=== PATIENT | female | born 1940 | race Caucasian/White ===

== ENCOUNTER 2023-09-14 12:40 | Emergency (ER) | payer MEDICARE, SELFPAY ==
[2023-09-14 12:49] VITALS: BP 136/61; PULSE 73; RESP 18; TEMP 36.6; O2SAT 94
--- NOTE | 2023-09-14 13:08 | ED.GENADULT ---
HPI - General Adult General Chief complaint: Headache Stated complaint: right side head down neck to shoulder Source: patient, RN notes reviewed and old records reviewed Mode of arrival: ambulatory Limitations: no limitations History of Present Illness HPI narrative: 82-year-old female presents with complaint of pain to posterior right head this started 3 days ago. Patient taking pain medications without relief. Patient denies any other symptoms, patient denies injury or illness. MD complaint: Head pain Related Data Home Medications Medication Instructions Recorded Confirmed alendronate 70 mg tablet mg PO 09/14/23 aspirin 81 mg tablet,delayed 81 mg PO DAILY 09/14/23 09/14/23 release levothyroxine 137 mcg tablet mcg 09/14/23 losartan 50 mg tablet mg 09/14/23 metoprolol tartrate 25 mg tablet mg 09/14/23 pantoprazole 40 mg tablet,delayed mg PO 09/14/23 release pioglitazone 30 mg tablet mg 09/14/23 semaglutide 0.25 mg or 0.5 mg (2 mg subcut 09/14/23 mg/3 mL) subcutaneous pen injector ([employer]) Allergies Allergy/AdvReac Type Severity Reaction Status Date / Time No Known Allergies Allergy Verified 09/14/23 13:01 Review of Systems Constitutional: Constitutional: Reports no additional constitutional complaints, Denies body ache(s), Denies chills, Denies fatigue, Denies fever(s) and Reports headache(s) Eyes: Eyes: Reports no additional eye complaints and Denies blurry vision ENT: Reports system reviewed and no additional complaints, except as documented, Denies vertigo, Denies dizziness, Denies ear discharge, Denies otalgia, Denies facial pain, Denies headache(s), Denies nasal congestion, Denies nasal discharge, Denies sinus pain, Denies sinus pressure and Denies sore throat Cardiovascular: Cardiovascular: Reports no additional cardiovascular complaints, Denies chest pain, Denies chest pain at rest, Denies rapid heart rate and Denies dyspnea Respiratory: Respiratory: Reports no additional respiratory complaints, Denies chest congestion, Denies cough, Denies pain on inspiration, Denies pain with cough and Denies dyspnea Gastrointestinal: Gastrointestinal: Denies abdominal pain, Denies diarrhea, Denies nausea and Denies vomiting Integumentary/Breasts: Skin/Breast: Denies rash Neurologic: Reports as per HPI, Denies vertigo, Denies dizziness and Reports headache(s) Endocrine: Endocrine: Denies fatigue PMFSH Comments At the time of my signature, I reviewed and agree with the nursing past medical, surgical, social, and family history. There is no relevant family history pertinent to the patient complaint. Exam Const: General: cooperative, healthy appearing, no acute distress and well nourished Nutritional Appearance: well nourished Orientation/consciousness: patient oriented x3 Limitations: no limitations HENMT: Head: normal to inspection and normocephalic Ears: external ears normal, TM's normal bilaterally, mastoids normal and Abnormal EAC present Face/Nose/Sinus: normal facial exam Face and sinus: normal facial exam Mouth: Yes Normal oral and palatal mucosa present, Yes oropharynx normal and Yes moist mucous membranes Throat: tonsils normal, uvula midline and no uvular edema Eyes: General: appearance normal, both eyes and all related structures Sclera: sclerae normal Pupils: Equal, round and reactive pupils present Resp: Effort & Inspection: normal respiratory effort, able to speak in complete sentences, no audible wheezes, no cough, no respiratory distress and no retractions Cardio: Rate: regular rate Skin: General skin exam: normal color and no rashes or lesions noted Neuro: General: patient oriented x3, gait normal, moves all extremities, no meningeal signs, CN's II-XI intact bilaterally and normal sensation to monofilament Cranial nerves: Yes CN's II-XII intact bilaterally and Yes Equal, round and reactive pupils present Cognition (Neuro): normal cognition Speech: normal speech Gait e
== END 2023-09-14 13:11 | disposition short-term general hospital (02) ==
PROVIDERS: Emergency Provider Registered Nurse; PCP Internal Medicine
DX: R51.9 Headache, unspecified (principal); E78.00 Pure hypercholesterolemia, unspecified; I10 Essential (primary) hypertension; E11.9 Type 2 diabetes mellitus without complications
CPT/HCPCS: 99213; G0463

== ENCOUNTER 2024-09-03 11:31 | Emergency (ER) | payer MEDICARE, SELFPAY ==
--- NOTE | ~2024-09-03 | XR_ITS ---
EXAMINATION: XR chest 2V DATE: 09/03/2024 12:39 INDICATION: Cough and wheezing TECHNIQUE: PA and lateral views of the chest were obtained. COMPARISON: None FINDINGS: Subtle bibasilar opacities which could represent atelectasis or pneumonia. No pleural effusion or pne umothorax. Heart size is normal. Moderate sized hiatal hernia. Mild thoracic spondylosis. IMPRESSION: 1. Subtle bibasilar opacities which could represent atelectasis or pneumonia. 2. Moderate-sized hiatal hernia. Reviewed, dictated and finalized at location A.
[2024-09-03 11:36] VITALS: BP 153/70; PULSE 98; RESP 20; TEMP 37.1; O2SAT 96
--- NOTE | 2024-09-03 12:19 | ED.URI ---
HPI - URI/Sore Throat General Chief Complaint: Upper Respiratory Infection Stated Complaint: Cough/Sore Throat Time Seen by Provider: 09/03/24 12:20 Source: patient Mode of arrival: ambulatory Limitations: no limitations History of Present Illness HPI Narrative: 83-year-old female presented for complaint of cough, chest congestion and nasal congestion for 1 week. Denies shortness of breath, wheezing, nausea, vomiting, diarrhea or lethargy. She has been taking DayQuil NyQuil , Vicks rub and trying to rest. Related Data Home Medications ?Medication ?Instructions ?Recorded ?Confirmed ?Last Taken ?Type alendronate 70 mg tablet mg PO 09/14/23 Unknown History levothyroxine 137 mcg tablet mcg 09/14/23 Unknown History losartan 50 mg tablet mg 09/14/23 Unknown History metoprolol tartrate 25 mg tablet mg 09/14/23 Unknown History pantoprazole 40 mg tablet,delayed mg PO 09/14/23 Unknown History release pioglitazone 30 mg tablet 30 mg 09/14/23 Unknown History semaglutide 0.25 mg or 0.5 mg (2 mg subcut 09/14/23 Unknown History mg/3 mL) subcutaneous pen injector (Ozempic) aspirin 325 mg capsule 325 mg PO BID 09/03/24 09/03/24 Unknown History atorvastatin 80 mg tablet mg 09/03/24 Unknown History Allergies Allergy/AdvReac Type Severity Reaction Status Date / Time No Known Allergies Allergy Verified 09/14/23 13:01 Review of Systems Review of Systems: CONSTITUTIONAL: Denies body aches, fever, chills, or sweats. EYES: Denies visual changes, redness, or discharge. ENT: reports rhinorrhea, congestion, denies sore throat, or otalgia. CARDIOVASCULAR: Denies chest pain, palpitations, or edema. RESPIRATORY: Reports cough, denies sob, wheezing. GASTROINTESTINAL: Denies abdominal pain, nausea, vomiting, or diarrhea. MUSCULOSKELETAL: Denies back pain, joint pain, or myalgia. NEUROLOGIC: Denies headache All systems reviewed & are unremarkable except as noted in HPI and below PMFSH Past Medical History Medical History (Updated 09/03/24 @ 13:10 by Lexie Quintanilla APRN) Diabetes Comments At time of signature, I have reviewed and agree with nursing past medical, surgical, social and family history unless otherwise noted. Please see nursing chart for further information. There is no relevant family history pertinent to the presenting complaint Exam Narrative: GENERAL: Well-appearing, in no acute distress. EYES: EOMI. No redness or drainage. Conjunctivae normal. ENT: Mucous membranes pink and moist. rhinorrhea. TMs normal bilaterally. Throat normal. Uvula midline. NECK: Normal AROM. Supple. CHEST: No respiratory distress. Wheezing to bases and right upper lobe HEART: Regular rate and rhythm. No murmur appreciated. ABDOMEN: Soft, nontender, nondistended, normal active bowel sounds. SKIN: Warm, dry, no rash. Capillary refill normal. Normal skin turgor. NEURO: Alert and oriented x3. Gait steady. PSYCH: Normal affect. Course Course Emergency Course: Patient is aware of diagnosis, understands and agrees to treatment plan. Anticipatory guidance given. Patient agrees to follow-up as directed and is aware of reasons to seek care at the emergency department. Portions of this record may have been created with voice recognition software Level of Care: Express Care Visit Vital Signs Vital signs: Vital Signs Temperature 98.8 F 09/03/24 11:36 Pulse Rate 98 09/03/24 11:36 Respiratory Rate 20 09/03/24 11:36 Blood Pressure 153/70 H 09/03/24 11:36 Pulse Oximetry 96 09/03/24 11:36 Oxygen Delivery Room Air 09/03/24 11:36 Temperature 98.8 F 09/03/24 11:36 Pulse Rate 98 09/03/24 11:36 Respiratory Rate 20 09/03/24 11:36 Blood Pressure 153/70 H 09/03/24 11:36 Pulse Oximetry 96 09/03/24 11:36 Oxygen Delivery Room Air 09/03/24 11:36 MDM - URI/Sore Throat MDM Narrative Medical decision making narrative: Discussed physical exam findings and CXR. Advised supportive measures and signs/symptoms to go to the ER. Pt is appropriate for outpt treatment and f/u. Differential Diagnosis Differential diagnosis: Likely upper respiratory infection, sinusitis, viral infection, bronchitis and other (pneumonia) Imaging Data Radiologist's impression: Patient: Amanda Moncada : 1940 MR#: [id number] Age: 83 Acct:[id number] Loc: [facility] ADM Date: 09/03/24Attending Dr: Ordering Physician: Lexie Quintanilla APRN Date of Service: 09/03/24 Procedure(s): XR chest 2V Accession Number(s): [id number] cc: Chilo, John Santiago MD; Lexie Quintanilla APRN~ EXAMINATION: XR chest 2V DATE: 09/03/2024 12:39 INDICATION: Cough and wheezing TECHNIQUE: PA and lateral views of the chest were obtained. COMPARISON: None FINDINGS: Subtle bibasilar opacities which could represent atelectasis or pneumonia. No pleural effusion or pneumothorax. Heart size is normal. Moderate sized hiatal hernia. Mild thoracic spondylosis. IMPRESSION: 1. Subtle bibasilar opacities which could represent atelectasis or pneumonia. 2. Moderate-sized hiatal hernia. Discharge Plan Discharge Clinical Impression: Pneumonia Patient Disposition: Home, Self-Care Condition: Stable Instructions: Antibiotic Form, Pneumonia (ED) Additional Instructions: Pneumonia is a lung infection that can cause a fever, cough, and trouble breathing. How it spreads: When someone with bacterial pneumonia coughs, sneezes, or talks, they release respiratory droplets into the air that can be inhaled by others.?You can also get pneumonia by touching a contaminated surface or object and then touching your mouth or nose. You're generally contagious for around 48 hours after starting antibiotics and your fever goes away.? To prevent the spread of pneumonia, you can:? ? Get vaccinated? ? Wash your hands often with soap and water for 20 seconds? ? Cover your mouth with a tissue when you cough or sneeze? ? Avoid people who are already sick with pneumonia? ? Stay home when you have pneumonia Take antibiotics as directed until complete. eat small frequent meals. Get lots of rest and drink fluids. Alternate Tylenol and ibuprofen for pain/fever [id number] cough medication can cause drowsiness, take according to package directions If you have nasal congestion, you can take Zyrtec, Claritin along with Flonase spray Call your Primary Care Doctor and make a follow-up appointment in 3 days. Go to the ER for worsening symptoms or concerns Patient Language: Singaporean Prescriptions: New prednisone 20 mg tablet 40 mg PO DAILY 5 Days Qty: 10 0RF azithromycin [Zithromax Z-Gucci] 250 mg tablet See Rx Instructions .ROUTE .COMPLEX Qty: 6 0RF Rx Instructions: For 250 mg dose pack: take 500 mg today (day 1), then 250 mg for 4 days (days 2-5) No Action atorvastatin 80 mg tablet aspirin 325 mg capsule 325 mg PO BID losartan 50 mg tablet levothyroxine 137 mcg tablet alendronate 70 mg tablet PO pantoprazole 40 mg tablet,delayed release (DR/EC) PO pioglitazone 30 mg tablet 30 mg metoprolol tartrate 25 mg tablet Ozempic 0.25 mg or 0.5 mg (2 mg/3 mL) pen injector SUBCUT Follow-up/Referrals: Chilo,Danie Santiago MD [Primary Care Provider] - Time of Disposition: 13:11
== END 2024-09-03 13:15 | disposition home or self-care (01) ==
PROVIDERS: Emergency Provider Nurse Practitioner Family; PCP Internal Medicine
DX: J18.9 Pneumonia, unspecified organism (principal); E11.9 Type 2 diabetes mellitus without complications
CPT/HCPCS: 71046; 99213; G0463